=== PATIENT | female | born 1990 | race Caucasian/White ===

== ENCOUNTER 2017-04-22 10:27 | Emergency (ER) | payer SELFPAY ==
[~2017-04-22] VITALS: Ht 157.5 cm; Wt 54.5 kg
[~2017-04-22 10:27] MED LIST: AMOXICILLIN500 MG PO; AUGMENTIN500TAB PO; CIPRO500 MG OR; CONCEPT OB PO; LORTAB5 PO; MACROBID100 MG PO; MACRODANTIN100 MG PO; NAPROSYN500 MG PO; NO; NO HOME MEDS; PERCOCET 5/321 COMBO PO; PHENERGAN25 MG/TAB PO; PRENATAL1 TAB OR; PREVACID30 M2 PO; PROAIR HFA IN; TUBERSOL5 MG/0.1 M ID; ULTRAM50 M1 PO; ULTRAM50 MG OR; ZOFRAN ODT4 MG PO; ZOFRAN ODT8 MG SL
[2017-04-22 11:16] LABS: HEMATOCRIT 35.5 % (37.0-47.0); IMMATURE GRANULOCYTES 0.3 % (0.0-1.0); MEAN CORPUSCULAR HGB 27.3 pG CALC (26.0-32.0); MEAN CORPUSCULAR HGB CONC 32.1 g/L CALC (32.0-36.0); NEUT# 6.11 thou/uL (2.00-7.15); RED BLOOD COUNT 4.18 mill/uL (4.20-5.60); RED CELL DISTRI WIDTH 16.8 % (11.5-15.5)
[2017-04-22 11:27] LABS: HEMOGLOBIN 11.4 g/dl (12.0-16.0); MEAN CELL VOLUME 84.9 fL CALC (80.0-100.0)
[2017-04-22 11:34] LABS: ANION GAP 16 (6-22 (CALC)); BUN 4 mg/dL (7-17); BUN/CREATININE RATIO 6 (12-20 (CALC)); CARBON DIOXIDE 23 mmol/l (22-30); CHLORIDE 109 mmol/l (95-108); CREATININE 0.6 mg/dL (0.5-1.0); GFR > 60 ML/MIN (>=60 (CALC)); GFR FOR AFR.AMER. > 60 ML/MIN (>=60 (CALC)); POTASSIUM 3.7 mmol/l (3.5-5.1)
[2017-04-22 11:36] LABS: SODIUM 144 mmol/l (137-146)
[2017-04-22 11:51] LABS: URINE BLOOD DIPSTICK SMALL (NEGATIVE); URINE COLOR YELLOW; URINE GLUCOSE - DIPSTICK NEGATIVE (NEGATIVE); URINE KETONE 15 mg/dL (NEGATIVE); URINE PROTEIN - DIPSTICK 100 mg/dL (NEG-TRACE); URINE UROBILINOGEN - DIPSTICK 0.2 E.U./dL (0.2)
[2017-04-22 11:52] LABS: URINE CLARITY CLEAR; URINE LEUK ESTERASE SMALL (NEGATIVE); URINE NITRITE - DIPSTICK POSITIVE (Negative)
[2017-04-22 12:00] LABS: URINE BACTERIA MODERATE hpf; URINE BILIRUBIN - DIPSTICK NEGATIVE (NEGATIVE); URINE EPITHELIAL CELLS RARE EPI/hpf (0-FEW)
[2017-04-22] MEDS ORDERED: CEPHALEXIN500 M1 PO (14:16)
[2017-04-22 14:27] VITALS: BP 135/68
== END 2017-04-22 14:27 | disposition home or self-care (01) | DRG 556 ==
LOC: ED 10:27
PROVIDERS: Family Medicine
DX: M25.562 Pain in left knee (principal); B96.20 Unspecified Escherichia coli [E. coli] as the cause of diseases classified elsewhere; M25.531 Pain in right wrist; M54.2 Cervicalgia; R10.32 Left lower quadrant pain; R22.42 Localized swelling, mass and lump, left lower limb; M54.5 Low back pain; R07.81 Pleurodynia; R51 Headache; V89.2XXA Person injured in unspecified motor-vehicle accident, traffic, initial encounter; Y93.I9 Activity, other involving external motion; Y92.413 State road as the place of occurrence of the external cause
CPT/HCPCS: Q9967

== ENCOUNTER 2017-09-19 13:56 | Emergency (ER) | payer SELFPAY ==
[~2017-09-19] VITALS: Ht 157.5 cm; Wt 51.6 kg
[~2017-09-19 13:56] MED LIST changes: +CEPHALEXIN500 M1 PO
[2017-09-19 15:00] LABS: URINE BILIRUBIN - DIPSTICK NEGATIVE (NEGATIVE); URINE BLOOD DIPSTICK MODERATE (NEGATIVE); URINE CLARITY CLOUDY; URINE COLOR YELLOW; URINE GLUCOSE - DIPSTICK NEGATIVE (NEGATIVE); URINE KETONE TRACE mg/dL (NEGATIVE); URINE LEUK ESTERASE LARGE (NEGATIVE); URINE NITRITE - DIPSTICK POSITIVE (Negative); URINE PROTEIN - DIPSTICK 100 mg/dL (NEG-TRACE); URINE SPECIFIC GRAVITY 1.015; URINE UROBILINOGEN - DIPSTICK 0.2 E.U./dL (0.2)
[2017-09-19 15:01] LABS: HEMATOCRIT 35.3 % (37.0-47.0); IMMATURE GRANULOCYTES 1.2 % (0.0-5.0); MEAN CELL VOLUME 85.1 fL CALC (80.0-100.0); MEAN CORPUSCULAR HGB 28.9 pG CALC (26.0-32.0); NEUT# 10.69 thou/uL (2.00-7.15); RED BLOOD COUNT 4.15 mill/uL (4.20-5.60)
[2017-09-19 15:02] LABS: URINE BACTERIA MANY hpf; URINE EPITHELIAL CELLS MODERATE EPI/hpf (0-FEW); URINE WBC 20-50 WBC/hpf (0-5)
[2017-09-19 15:18] LABS: ALBUMIN 3.2 g/dL (3.2-5.0); ALKALINE PHOSPHATASE 91 u/l (38-126); BILIRUBIN, TOTAL 0.7 mg/dL (0.0-1.4); BUN 5 mg/dL (7-17); BUN/CREATININE RATIO 9 (12-20 (CALC)); CARBON DIOXIDE 22 mmol/l (22-30); CHLORIDE 96 mmol/l (95-108); CREATININE 0.6 mg/dL (0.5-1.0); GFR > 60 ML/MIN (>=60 (CALC)); GFR FOR AFR.AMER. > 60 ML/MIN (>=60 (CALC)); POTASSIUM 3.4 mmol/l (3.5-5.1); SGOT/AST 23 u/l (14-36); SGPT/ALT 25 u/l (9-52); TOTAL PROTEIN 6.2 g/dL (6.3-8.2)
[2017-09-19 15:25] LABS: ANION GAP 15 (6-22 (CALC)); SODIUM 130 mmol/l (137-146)
[2017-09-19 15:43] LABS: INFLUENZA A NONE DETECTED (NONE DETECT); INFLUENZA B NONE DETECTED (NONE DETECT)
[2017-09-19] MEDS ORDERED: CIPROFLOXACN500 MG PO (17:49)
[2017-09-19 18:36] VITALS: BP 93/64
== END 2017-09-19 18:36 | disposition left against medical advice (07) | DRG 690 ==
LOC: ED 13:56 → ED-I 16:56 → ED 18:36
PROVIDERS: Emergency Medicine
DX: N12 Tubulo-interstitial nephritis, not specified as acute or chronic (principal); I95.9 Hypotension, unspecified; F17.210 Nicotine dependence, cigarettes, uncomplicated; Z91.19 Patient's noncompliance with other medical treatment and regimen
CPT/HCPCS: Q9967

== ENCOUNTER 2017-09-19 23:21 | Inpatient (IN) | payer SELFPAY ==
[~2017-09-19] VITALS: Ht 157.5 cm; Wt 56.0 kg
[~2017-09-19 23:21] MED LIST changes: +CIPROFLOXACN500 MG PO
[2017-09-20] VITALS (7 sets, daily range): BP systolic 99–116; BP diastolic 62–73
[2017-09-20 01:08] LABS: HEMOGLOBIN 11.7 g/dl (12.0-16.0); IMMATURE GRANULOCYTES 0.5 % (0.0-5.0); MEAN CELL VOLUME 89.2 fL CALC (80.0-100.0); MEAN CORPUSCULAR HGB 28.2 pG CALC (26.0-32.0); MEAN CORPUSCULAR HGB CONC 31.6 g/L CALC (32.0-36.0); NEUT# 10.13 thou/uL (2.00-7.15); RED BLOOD COUNT 4.15 mill/uL (4.20-5.60); RED CELL DISTRI WIDTH 17.3 % (11.5-15.5)
[2017-09-20 01:23] LABS: ALKALINE PHOSPHATASE 107 u/l (38-126); BILIRUBIN, TOTAL 0.6 mg/dL (0.0-1.4); BUN 5 mg/dL (7-17); BUN/CREATININE RATIO 8 (12-20 (CALC)); CARBON DIOXIDE 18 mmol/l (22-30); CHLORIDE 106 mmol/l (95-108); CREATININE 0.6 mg/dL (0.5-1.0); GFR > 60 ML/MIN (>=60 (CALC)); GFR FOR AFR.AMER. > 60 ML/MIN (>=60 (CALC)); SGPT/ALT 40 u/l (9-52)
[2017-09-20 01:24] LABS: ANION GAP 18 (6-22 (CALC)); SGOT/AST 61 u/l (14-36); SODIUM 139 mmol/l (137-146)
[2017-09-20 03:12] LABS: URINE BILIRUBIN - DIPSTICK NEGATIVE (NEGATIVE); URINE BLOOD DIPSTICK SMALL (NEGATIVE); URINE CLARITY TURBID; URINE COLOR YELLOW; URINE GLUCOSE - DIPSTICK 100 mg/dL (NEGATIVE); URINE KETONE NEGATIVE (NEGATIVE); URINE LEUK ESTERASE SMALL (NEGATIVE); URINE NITRITE - DIPSTICK NEGATIVE (Negative); URINE PROTEIN - DIPSTICK TRACE mg/dL (NEG-TRACE); URINE SPECIFIC GRAVITY 1.015
[2017-09-20 03:31] LABS: URINE BACTERIA FEW hpf; URINE RBC 0-2 RBC/hpf (0-5); URINE SQUAMOUS EPITHELIAL CELL FEW EPI/hpf (0-FEW); URINE WBC 20-50 WBC/hpf (0-5)
[2017-09-20 06:18] LABS: HEMOGLOBIN 10.3 g/dl (12.0-16.0); IMMATURE GRANULOCYTES 1.1 % (0.0-5.0); MEAN CELL VOLUME 86.8 fL CALC (80.0-100.0); MEAN CORPUSCULAR HGB 28.9 pG CALC (26.0-32.0); MEAN CORPUSCULAR HGB CONC 33.3 g/L CALC (32.0-36.0); NEUT# 9.95 thou/uL (2.00-7.15); RED BLOOD COUNT 3.56 mill/uL (4.20-5.60); RED CELL DISTRI WIDTH 17.3 % (11.5-15.5)
[2017-09-20 06:22] LABS: HEMATOCRIT 30.9 % (37.0-47.0)
[2017-09-20 06:49] LABS: ANION GAP 9 (6-22 (CALC)); BUN 4 mg/dL (7-17); BUN/CREATININE RATIO 9 (12-20 (CALC)); CARBON DIOXIDE 22 mmol/l (22-30); CHLORIDE 110 mmol/l (95-108); CREATININE 0.5 mg/dL (0.5-1.0); GFR > 60 ML/MIN (>=60 (CALC)); GFR FOR AFR.AMER. > 60 ML/MIN (>=60 (CALC)); POTASSIUM 2.9 mmol/l (3.5-5.1); SODIUM 138 mmol/l (137-146)
[2017-09-21 00:10] VITALS: BP 93/60
[2017-09-21 03:59] VITALS: BP 102/72
[2017-09-21 09:31] LABS: ANION GAP 9 (6-22 (CALC)); BUN 3 mg/dL (7-17); BUN/CREATININE RATIO 7 (12-20 (CALC)); CARBON DIOXIDE 22 mmol/l (22-30); CHLORIDE 110 mmol/l (95-108); CREATININE 0.5 mg/dL (0.5-1.0); GFR > 60 ML/MIN (>=60 (CALC)); GFR FOR AFR.AMER. > 60 ML/MIN (>=60 (CALC)); MAGNESIUM 1.6 mg/dL (1.6-2.3); POTASSIUM 3.5 mmol/l (3.5-5.1); SODIUM 137 mmol/l (137-146)
[2017-09-21 09:42] LABS: HEMATOCRIT 29.6 % (37.0-47.0); HEMOGLOBIN 9.8 g/dl (12.0-16.0); MEAN CELL VOLUME 85.8 fL CALC (80.0-100.0); MEAN CORPUSCULAR HGB 28.4 pG CALC (26.0-32.0); MEAN CORPUSCULAR HGB CONC 33.1 g/L CALC (32.0-36.0); RED BLOOD COUNT 3.45 mill/uL (4.20-5.60); RED CELL DISTRI WIDTH 17.8 % (11.5-15.5)
[2017-09-21 09:46] VITALS: BP 113/77
[2017-09-21 11:21] LABS: BARBITURATES NEGATIVE (NEGATIVE); COCAINE NEGATIVE (NEGATIVE); METHADONE NEGATIVE (NEGATIVE); OXCYCODONE NEGATIVE (NEGATIVE); TETRAHYDROCANNABIONOL POSITIVE (NEGATIVE); TRICYLIC ANTIDEPRESSANTS NEGATIVE (NEGATIVE)
[2017-09-21 16:00] VITALS: BP 109/65
[2017-09-21 19:00] VITALS: BP 113/74
[2017-09-21 23:59] VITALS: BP 112/78
[2017-09-22 04:57] VITALS: BP 102/71
[2017-09-22 05:57] LABS: HEMATOCRIT 29.1 % (37.0-47.0); HEMOGLOBIN 9.7 g/dl (12.0-16.0); IMMATURE GRANULOCYTES 0.3 % (0.0-5.0); MEAN CELL VOLUME 85.8 fL CALC (80.0-100.0); MEAN CORPUSCULAR HGB 28.6 pG CALC (26.0-32.0); MEAN CORPUSCULAR HGB CONC 33.3 g/L CALC (32.0-36.0); NEUT# 6.68 thou/uL (2.00-7.15); RED BLOOD COUNT 3.39 mill/uL (4.20-5.60); RED CELL DISTRI WIDTH 18.2 % (11.5-15.5)
[2017-09-22 06:03] LABS: ANION GAP 10 (6-22 (CALC)); BUN 3 mg/dL (7-17); BUN/CREATININE RATIO 7 (12-20 (CALC)); CARBON DIOXIDE 22 mmol/l (22-30); CHLORIDE 109 mmol/l (95-108); CREATININE 0.5 mg/dL (0.5-1.0); GFR > 60 ML/MIN (>=60 (CALC)); GFR FOR AFR.AMER. > 60 ML/MIN (>=60 (CALC)); MAGNESIUM 1.6 mg/dL (1.6-2.3); POTASSIUM 3.9 mmol/l (3.5-5.1); SODIUM 138 mmol/l (137-146)
[2017-09-22 08:40] VITALS: BP 107/68
[2017-09-22 10:53] VITALS: BP 108/78
[2017-09-22] MEDS ORDERED: PEPCID20 MG PO (12:04)
[2017-09-22] MEDS ORDERED: CIPROFLOXACN500 MG PO (12:04)
== END 2017-09-22 13:15 | disposition home or self-care (01) | DRG 690 ==
LOC: ED 23:21 → ED-I 09-20 00:10 → ED 09-20 00:28 → MS2 09-20 00:29
PROVIDERS: Emergency Medicine; Internal Medicine; Nurse Practitioner Family; ADMIT General Practice; ATTEND General Practice
DX: N10 Acute pyelonephritis (principal); E87.2 Acidosis; E86.0 Dehydration; F17.210 Nicotine dependence, cigarettes, uncomplicated; E87.6 Hypokalemia; N94.89 Other specified conditions associated with female genital organs and menstrual cycle; F15.90 Other stimulant use, unspecified, uncomplicated; Z87.440 Personal history of urinary (tract) infections; Z91.19 Patient's noncompliance with other medical treatment and regimen

== ENCOUNTER 2018-01-13 17:28 | Emergency (ER) | payer SELFPAY ==
[~2018-01-13] VITALS: Ht 157.5 cm; Wt 50.0 kg
[~2018-01-13 17:28] MED LIST changes: +PEPCID20 MG PO
[2018-01-13] MEDS ORDERED: KEFLEX500 M1 PO (17:44)
[2018-01-13 17:48] VITALS: BP 118/64
== END 2018-01-13 17:50 | disposition home or self-care (01) | DRG 605 ==
LOC: ED 17:28
PROC: 0HQLXZZ Repair Left Lower Leg Skin, External Approach (ICD-10-PCS; principal; 2018-01-13)
DX: S81.012A Laceration without foreign body, left knee, initial encounter (principal); F17.200 Nicotine dependence, unspecified, uncomplicated; W25.XXXA Contact with sharp glass, initial encounter; Y93.89 Activity, other specified; Y92.003 Bedroom of unspecified non-institutional (private) residence as the place of occurrence of the external cause

== ENCOUNTER 2018-04-15 19:31 | Emergency (ER) | payer SELFPAY ==
[~2018-04-15] VITALS: Ht 157.5 cm; Wt 56.6 kg
[~2018-04-15 19:31] MED LIST changes: +KEFLEX500 M1 PO
[2018-04-15] MEDS ORDERED: PRENATA3 PO (19:41)
[2018-04-15 20:30] LABS: HEMATOCRIT 34.6 % (37.0-47.0); IMMATURE GRANULOCYTES 0.3 % (0.0-5.0); MEAN CELL VOLUME 88.9 fL CALC (80.0-100.0); MEAN CORPUSCULAR HGB 30.1 pG CALC (26.0-32.0); MEAN CORPUSCULAR HGB CONC 33.8 g/L CALC (32.0-36.0); NEUT# 4.37 thou/uL (2.00-7.15); RED BLOOD COUNT 3.89 mill/uL (4.20-5.60); RED CELL DISTRI WIDTH 16.7 % (11.5-15.5)
[2018-04-15 20:31] LABS: HEMOGLOBIN 11.7 g/dl (12.0-16.0)
[2018-04-15 20:31] LABS: URINE BILIRUBIN - DIPSTICK NEGATIVE (NEGATIVE); URINE BLOOD DIPSTICK LARGE (NEGATIVE); URINE COLOR YELLOW; URINE GLUCOSE - DIPSTICK NEGATIVE (NEGATIVE); URINE KETONE 15 mg/dL (NEGATIVE); URINE LEUK ESTERASE NEGATIVE (NEGATIVE); URINE NITRITE - DIPSTICK NEGATIVE (Negative); URINE PROTEIN - DIPSTICK NEGATIVE (NEG-TRACE); URINE UROBILINOGEN - DIPSTICK 0.2 E.U./dL (0.2)
[2018-04-15 20:39] LABS: URINE RBC 25-50 RBC/hpf (0-5); URINE SQUAMOUS EPITHELIAL CELL FEW EPI/hpf (0-FEW)
[2018-04-15 20:42] LABS: ALBUMIN 3.5 g/dL (3.2-5.0); ANION GAP 12 (6-22 (CALC)); BILIRUBIN, TOTAL 0.5 mg/dL (0.0-1.4); BUN 6 mg/dL (7-17); BUN/CREATININE RATIO 13 (12-20 (CALC)); CARBON DIOXIDE 23 mmol/l (22-30); CHLORIDE 104 mmol/l (95-108); CREATININE 0.5 mg/dL (0.5-1.0); GFR > 60 ML/MIN (>=60 (CALC)); GFR FOR AFR.AMER. > 60 ML/MIN (>=60 (CALC)); POTASSIUM 3.4 mmol/l (3.5-5.1); SGOT/AST 22 u/l (14-36); SODIUM 135 mmol/l (137-146); TOTAL PROTEIN 6.4 g/dL (6.3-8.2)
[2018-04-15 20:44] LABS: ALKALINE PHOSPHATASE 51 u/l (38-126)
[2018-04-15 21:26] LABS: BETA-HCG, QUANT(RESULT NUMBER) 46773 mIU/mL
[2018-04-15 23:45] VITALS: BP 101/64
== END 2018-04-15 23:45 | disposition home or self-care (01) | DRG 832 ==
LOC: ED 19:31
PROVIDERS: Emergency Medicine
DX: O20.0 Threatened abortion (principal); O10.911 Unspecified pre-existing hypertension complicating pregnancy, first trimester; O99.331 Smoking (tobacco) complicating pregnancy, first trimester; F17.200 Nicotine dependence, unspecified, uncomplicated; Z3A.01 Less than 8 weeks gestation of pregnancy

== ENCOUNTER 2018-07-02 07:33 | Emergency (ER) | payer SELFPAY ==
[~2018-07-02] VITALS: Ht 157.5 cm; Wt 60.0 kg
[~2018-07-02 07:33] MED LIST changes: +PRENATA3 PO
[2018-07-02 08:17] LABS: HEMATOCRIT 34.6 % (37.0-47.0); HEMOGLOBIN 11.4 g/dl (12.0-16.0); IMMATURE GRANULOCYTES 0.7 % (0.0-5.0); MEAN CELL VOLUME 86.7 fL CALC (80.0-100.0); MEAN CORPUSCULAR HGB 28.6 pG CALC (26.0-32.0); MEAN CORPUSCULAR HGB CONC 32.9 g/L CALC (32.0-36.0); NEUT# 11.87 thou/uL (2.00-7.15); RED BLOOD COUNT 3.99 mill/uL (4.20-5.60); RED CELL DISTRI WIDTH 15.6 % (11.5-15.5)
[2018-07-02 08:30] LABS: ALBUMIN 3.6 g/dL (3.2-5.0); ALKALINE PHOSPHATASE 74 u/l (38-126); ANION GAP 12 (6-22 (CALC)); BILIRUBIN, TOTAL 0.4 mg/dL (0.0-1.4); BUN 12 mg/dL (7-17); BUN/CREATININE RATIO 26 (12-20 (CALC)); CARBON DIOXIDE 22 mmol/l (22-30); CHLORIDE 103 mmol/l (95-108); CREATININE 0.5 mg/dL (0.5-1.0); GFR > 60 ML/MIN (>=60 (CALC)); GFR FOR AFR.AMER. > 60 ML/MIN (>=60 (CALC)); POTASSIUM 4.1 mmol/l (3.5-5.1); SGOT/AST 17 u/l (14-36); SODIUM 133 mmol/l (137-146); TOTAL PROTEIN 6.8 g/dL (6.3-8.2)
[2018-07-02 08:45] LABS: BETA-HCG, QUANT(RESULT NUMBER) 3566 mIU/mL
[2018-07-02 11:03] LABS: URINE BILIRUBIN - DIPSTICK NEGATIVE (NEGATIVE); URINE BLOOD DIPSTICK NEGATIVE (NEGATIVE); URINE COLOR YELLOW; URINE GLUCOSE - DIPSTICK NEGATIVE (NEGATIVE); URINE KETONE NEGATIVE (NEGATIVE); URINE LEUK ESTERASE NEGATIVE (NEGATIVE); URINE NITRITE - DIPSTICK NEGATIVE (Negative); URINE PROTEIN - DIPSTICK TRACE mg/dL (NEG-TRACE); URINE SPECIFIC GRAVITY 1.015; URINE UROBILINOGEN - DIPSTICK 0.2 E.U./dL (0.2)
[2018-07-02 11:09] LABS: BARBITURATES NEGATIVE (NEGATIVE); COCAINE NEGATIVE (NEGATIVE); METHADONE NEGATIVE (NEGATIVE); OXCYCODONE NEGATIVE (NEGATIVE); TETRAHYDROCANNABIONOL NEGATIVE (NEGATIVE); TRICYLIC ANTIDEPRESSANTS NEGATIVE (NEGATIVE)
[2018-07-02] MEDS ORDERED: ONDANSETRON4 MG PO (11:20)
[2018-07-02 11:27] VITALS: BP 124/69
== END 2018-07-02 11:33 | disposition home or self-care (01) | DRG 833 ==
LOC: ED 07:33
PROVIDERS: Emergency Medicine
DX: O99.322 Drug use complicating pregnancy, second trimester (principal); O21.2 Late vomiting of pregnancy; Z3A.24 24 weeks gestation of pregnancy

== ENCOUNTER 2020-03-14 00:19 | Emergency (ER) | payer MEDICAID ==
[~2020-03-14] VITALS: Ht 157.5 cm; Wt 59.0 kg
[~2020-03-14 00:19] MED LIST changes: +ONDANSETRON4 MG PO
[2020-03-14] MEDS ORDERED: BACTRIM DS1 TAB PO (01:30)
[2020-03-14] MEDS ORDERED: KEFLEX500 M1 PO (01:30)
[2020-03-14] MEDS ORDERED: LORTAB 1010 MG PO (01:30)
[2020-03-14 01:50] VITALS: BP 131/80
== END 2020-03-14 01:50 | disposition home or self-care (01) ==
LOC: ED 00:19
DX: L02.412 Cutaneous abscess of left axilla (principal); B95.62 Methicillin resistant Staphylococcus aureus infection as the cause of diseases classified elsewhere; I10 Essential (primary) hypertension; F17.210 Nicotine dependence, cigarettes, uncomplicated

== ENCOUNTER 2020-03-15 19:04 | Emergency (ER) | payer MEDICAID ==
[~2020-03-15] VITALS: Ht 157.5 cm; Wt 59.0 kg
[~2020-03-15 19:04] MED LIST changes: +BACTRIM DS1 TAB PO; +LORTAB 1010 MG PO
[2020-03-15 20:00] VITALS: BP 136/86
--- NOTE | 2020-03-16 11:23 | NUR ---
[facility] was contacted and notified on 03/16/20 to cancel rx for cephalexin 500 mg and to keep the rx for Bactim DS. Patient does not have voicemail set up, so message was left at the pharmacy to notify patient only Bactrim DS is necessary due to MRSA culture.
== END 2020-03-15 20:00 | disposition home or self-care (01) ==
LOC: ED 19:04
DX: Z48.01 Encounter for change or removal of surgical wound dressing (principal); I10 Essential (primary) hypertension; F17.210 Nicotine dependence, cigarettes, uncomplicated

== ENCOUNTER 2020-03-17 16:48 | Emergency (ER) | payer MEDICAID ==
[~2020-03-17] VITALS: Ht 157.5 cm; Wt 59.0 kg
[2020-03-17 17:14] VITALS: BP 134/82
== END 2020-03-17 17:30 | disposition left against medical advice (07) | DRG 951 ==
LOC: ED 16:48 → LWOBS 17:27 → ED 17:27 → LWOBS 17:30
DX: Z53.21 Procedure and treatment not carried out due to patient leaving prior to being seen by health care provider (principal)

== ENCOUNTER 2020-06-20 12:26 | Emergency (ER) | payer MEDICAID ==
[2020-06-20 13:41] VITALS: BP 128/70
== END 2020-06-20 13:45 | disposition home or self-care (01) ==
LOC: ED 12:26
DX: S61.210A Laceration without foreign body of right index finger without damage to nail, initial encounter (principal); I10 Essential (primary) hypertension; F17.200 Nicotine dependence, unspecified, uncomplicated; W26.0XXA Contact with knife, initial encounter; Y93.89 Activity, other specified; Y92.009 Unspecified place in unspecified non-institutional (private) residence as the place of occurrence of the external cause

== ENCOUNTER 2020-08-18 02:14 | Emergency (ER) | payer MEDICAID ==
[~2020-08-18] VITALS: Ht 157.5 cm; Wt 59.0 kg
[2020-08-18 02:47] LABS: HEMATOCRIT 40.6 % (37.0-47.0); HEMOGLOBIN 12.9 g/dl (12.0-16.0); MEAN CELL VOLUME 86.8 fL CALC (80.0-100.0); MEAN CORPUSCULAR HGB 27.6 pG CALC (26.0-32.0); MEAN CORPUSCULAR HGB CONC 31.8 g/dL CAL (32.0-36.0); NEUT# 3.35 thou/uL (2.00-7.15); RED BLOOD COUNT 4.68 mill/uL (4.20-5.60); RED CELL DISTRI WIDTH 14.2 % (11.5-15.5)
[2020-08-18 02:58] LABS: ALBUMIN 3.8 g/dL (3.2-5.0); ALKALINE PHOSPHATASE 83 u/l (38-126); BUN 8 mg/dL (7-17); BUN/CREATININE RATIO 11 (12-20 (CALC)); CHLORIDE 101 mmol/l (95-108); CREATININE 0.7 mg/dL (0.5-1.0); GFR > 60 ML/MIN (>=60 (CALC)); GFR FOR AFR.AMER. > 60 ML/MIN (>=60 (CALC)); POTASSIUM 4.2 mmol/l (3.5-5.1); SGOT/AST 20 u/l (14-36); SODIUM 139 mmol/l (137-146); TOTAL PROTEIN 7.1 g/dL (6.3-8.2)
[2020-08-18 03:02] LABS: ANION GAP 11 (6-22 (CALC)); BILIRUBIN, TOTAL 0.2 mg/dL (0.0-1.4); CARBON DIOXIDE 31 mmol/l (22-30)
[2020-08-18 03:53] VITALS: BP 105/60
== END 2020-08-18 06:49 | disposition left against medical advice (07) ==
LOC: ED 02:14
PROVIDERS: Emergency Medicine
DX: R07.89 Other chest pain (principal); F19.10 Other psychoactive substance abuse, uncomplicated; I10 Essential (primary) hypertension; F17.200 Nicotine dependence, unspecified, uncomplicated; Z91.19 Patient's noncompliance with other medical treatment and regimen
CPT/HCPCS: Q9967

== ENCOUNTER 2020-11-30 02:22 | Emergency (ER) | payer MEDICAID ==
[~2020-11-30] VITALS: Ht 157.5 cm; Wt 50.0 kg
[2020-11-30 03:41] LABS: ALBUMIN 4.2 g/dL (3.2-5.0); ALKALINE PHOSPHATASE 69 u/l (38-126); AMYLASE 69 u/l (30-110); BUN 10 mg/dL (7-17); BUN/CREATININE RATIO 17 (12-20 (CALC)); CHLORIDE 104 mmol/l (95-108); CREATININE 0.6 mg/dL (0.5-1.0); GFR > 60 ML/MIN (>=60 (CALC)); GFR FOR AFR.AMER. > 60 ML/MIN (>=60 (CALC)); LIPASE 142 u/l (23-300); POTASSIUM 4.1 mmol/l (3.5-5.1); SGOT/AST 24 u/l (14-36); SODIUM 137 mmol/l (137-146); TOTAL PROTEIN 7.7 g/dL (6.3-8.2)
[2020-11-30 03:42] LABS: HEMATOCRIT 37.5 % (37.0-47.0); IMMATURE GRANULOCYTES 0.1 % (0.0-5.0); MEAN CELL VOLUME 85.2 fL CALC (80.0-100.0); MEAN CORPUSCULAR HGB 27.3 pG CALC (26.0-32.0); NEUT# 10.22 thou/uL (2.00-7.15); RED BLOOD COUNT 4.4 mill/uL (4.20-5.60); RED CELL DISTRI WIDTH 15.8 % (11.5-15.5)
[2020-11-30 03:45] LABS: ANION GAP 13 (6-22 (CALC)); BILIRUBIN, TOTAL 0.7 mg/dL (0.0-1.4); CARBON DIOXIDE 24 mmol/l (22-30)
[2020-11-30 03:53] LABS: MYOGLOBIN 33 ng/mL (0 - 62)
[2020-11-30 04:00] LABS: ACT PARTIAL THROMBO TIME 22.9 SECONDS (20.0-32.5); INTERNATIONAL NORMALIZED RATIO 0.9 RATIO (0.7-1.3); PROTHROMBIN TIME 9.9 SECONDS (9.0-12.5)
[2020-11-30 04:06] LABS: D-DIMER 0.63 mg/L (0.19-0.60)
[2020-11-30] MEDS ORDERED: DOXYCYCL HYC100 MG PO (04:43)
[2020-11-30 04:57] VITALS: BP 117/66
== END 2020-11-30 05:02 | disposition home or self-care (01) ==
LOC: ED 02:22
PROVIDERS: Family Medicine
DX: J20.9 Acute bronchitis, unspecified (principal); F19.10 Other psychoactive substance abuse, uncomplicated; I10 Essential (primary) hypertension; F17.200 Nicotine dependence, unspecified, uncomplicated

== ENCOUNTER 2023-09-03 05:12 | Emergency (ER) | payer SELFPAY ==
[~2023-09-03] VITALS: Ht 160 cm; Wt 60.0 kg
[~2023-09-03 05:12] MED LIST changes: +DOXYCYCL HYC100 MG PO
[2023-09-03] MEDS ORDERED: LIDOcaine HCl 1% (Local Anesth.) 20 ML VIAL IM STA (06:18)
[2023-09-03] MEDS ORDERED: KETOROLAC TROMETHAMINE 30 MG/ML SDV IM ONE (06:20)
[2023-09-03] MEDS ORDERED: ACETAMINOPHEN 500 MG TAB PO ONE (06:20)
[2023-09-03] MEDS ORDERED: cefTRIAXone SODIUM 1 GM/VIAL SDV IM ONE (06:20)
[2023-09-03] MEDS ORDERED: NAPROXEN500 MG PO (06:24)
[2023-09-03] MEDS ORDERED: PENICILLN VK500 MG PO (06:24)
[2023-09-03 06:59] VITALS: BP 129/64
== END 2023-09-03 06:59 | disposition home or self-care (01) | DRG 159 ==
LOC: ED 05:12
DX: K02.9 Dental caries, unspecified (principal); S02.5XXA Fracture of tooth (traumatic), initial encounter for closed fracture; X58.XXXA Exposure to other specified factors, initial encounter; I10 Essential (primary) hypertension; F17.200 Nicotine dependence, unspecified, uncomplicated

== ENCOUNTER 2023-11-08 14:49 | Emergency (ER) | payer SELFPAY ==
[~2023-11-08] VITALS: Ht 160 cm; Wt 63.5 kg
[~2023-11-08 14:49] MED LIST changes: +NAPROXEN500 MG PO; +PENICILLN VK500 MG PO
[2023-11-08 14:54] VITALS: BP 114/78
[2023-11-08 15:00] VITALS: BP 106/72
[2023-11-08 15:30] VITALS: BP 99/67
[2023-11-08 15:45] VITALS: BP 90/52
[2023-11-08] MEDS ORDERED: DEXAMETHASONE SOD. PHOSPHATE 10 MG/ML VIAL PO ONE (15:50)
[2023-11-08] MEDS ORDERED: BACTRIM DS1 TAB PO (15:50)
[2023-11-08] MEDS ORDERED: KETOROLAC TROMETHAMINE 15 MG/ML SDV IM ONE (16:00)
[2023-11-08 16:01] VITALS: BP 99/58
== END 2023-11-08 16:15 | disposition home or self-care (01) | DRG 607 ==
LOC: ED 14:49
DX: L73.9 Follicular disorder, unspecified (principal); I10 Essential (primary) hypertension; F17.200 Nicotine dependence, unspecified, uncomplicated; Z20.822 Contact with and (suspected) exposure to COVID-19

== ENCOUNTER 2024-02-13 21:51 | Emergency (ER) | payer OTHER ==
[2024-02-13] VITALS (8 sets, daily range): BP systolic 107–124; BP diastolic 68–81
[~2024-02-13] VITALS: Ht 157.5 cm; Wt 63.5 kg
[2024-02-13] MEDS ORDERED: KETOROLAC TROMETHAMINE 30 MG/ML SDV IV ONE (22:10)
[2024-02-13] MEDS ORDERED: ASPIRIN 81 MG/TAB PO ONE (22:10)
[2024-02-13] MEDS ORDERED: ACETAMINOPHEN 500 MG TAB PO ONE (22:10)
[2024-02-13] MEDS ORDERED: KETOROLAC TROMETHAMINE 30 MG/ML SDV IM ONE (22:50)
[2024-02-13 22:52] LABS: BASO% 0.5 % (0-3); EOS% 2.6 % (0-8); HEMATOCRIT 32.2 % (37.0-47.0); IMMATURE GRANULOCYTES 0.1 % (0.0-5.0); LYMPH% 34.3 % (15-41); MEAN CORPUSCULAR HGB 22.7 pG CALC (26.0-32.0); MEAN CORPUSCULAR HGB CONC 29.5 g/dL CAL (32.0-36.0); MONO% 6.6 % (2-13); NEUT# 4.24 thou/uL (2.00-7.15); NEUT% 55.9 % (42-76); RED BLOOD COUNT 4.19 mill/uL (4.20-5.60); RED CELL DISTRI WIDTH 17.4 % (11.5-15.5)
[2024-02-13 22:55] LABS: HEMOGLOBIN 9.5 g/dl (12.0-16.0); MEAN CELL VOLUME 76.8 fL CALC (80.0-100.0)
[2024-02-13 23:06] LABS: ALBUMIN 4.2 g/dL (3.2-5.0); ALKALINE PHOSPHATASE 64 u/l (38-126); BUN 10 mg/dL (7-17); BUN/CREATININE RATIO 17 (12-20 (CALC)); CHLORIDE 105 mmol/l (95-108); CREATININE 0.6 mg/dL (0.5-1.0); ESTIMATED GFR 122 ML/MIN (>=90 (CALC)); LIPASE 109 u/l (23-300); POTASSIUM 4.2 mmol/l (3.5-5.1); SGOT/AST 35 u/l (14-36); SODIUM 139 mmol/l (137-146); TOTAL PROTEIN 7.8 g/dL (6.3-8.2)
[2024-02-13 23:08] LABS: ANION GAP 14 (6-22 (CALC)); BILIRUBIN, TOTAL 0.4 mg/dL (0.02-1.3); CARBON DIOXIDE 24 mmol/l (22-30)
[2024-02-13] MEDS ORDERED: VOLTAREN - GENE75 MG PO (23:42)
[2024-02-14] VITALS: BP 116/74
[2024-02-14 00:16] VITALS: BP 116/74
== END 2024-02-14 00:17 | DRG 313 ==
LOC: ED 21:51
PROVIDERS: Family Medicine
DX: R07.89 Other chest pain (principal); I10 Essential (primary) hypertension